=== PATIENT | female | born 1980 | race Two or more races ===

== ENCOUNTER 2017-01-15 05:06 | Day surgery (SDC) | payer OTHER ==
[2017-01-08 13:48] VITALS: BMI 26.5
--- NOTE | 2017-01-14 09:12 | HP ---
[facility] - Chief Complaint Chief Complaint: This patient has had irregular uterine bleeding for the past several months. History of Present Illness: This patient c/o having bleeding 4-5 times a month for several months. History Source: Patient Limitations to Obtaining History: No Limitations - Past Medical History Allergies/Adverse Reactions: Allergies Allergy/AdvReac Type Severity Reaction Status Date / Time No Known Allergies Allergy Verified 01/08/17 13:48 LETTERPRESS SETTER: No: Alzheimer's, CVA, Dementia, Migraine, Multiple Sclerosis, Peripheral Neuropathy, Parkinson's, Seizure, Syncope, TIA, Vertigo, Other Pulmonary: No: Asthma, Bronchitis, Cancer, COPD, O2 Dependent, Pneumonia, Previously Intubated, Pulmonary Embolus, Pulmonary Fibrosis, Sleep Apnea, Other Gastrointestinal: No: Ascites, Cancer, Constipation, Crohn's Disease, Diverticulitis, Diverticulosis, Esophageal Varices, Gastritis, GERD, GI Bleed, Hemorrhoids, Hiatal Hernia, Inflamatory Bowel Disease, Irritable Bowel Disease, Pancreatitis, Peptic Ulcer Disease, Ulcerative Colitis, Other Hepatobiliary: No: Cirrhosis, Cholelithiasis, Cholecystitis, Choledocholithiasis , Hepatitis A, Hepatitis B, Hepatitis C, Other Renal/: No: Renal Failure, Renal Inusuff, BPH, Cancer, Hematuria, Hemodialysis , Neurogenic Bladder, Renal Calculi, UTI, Other Reproductive: No: Ectopic , Endometriosis, Fibroids, PID, Polycystic Ovary Syndrome, Postmenopausal, Other ...LMP: 12/10/16 ...LMP Comment: HEAVY ...: No ...: 3 ...Para: 2 Heme/Onc: No: Anemia, B12 Deficiency, Bleeding Disorder, Cancer, Current Chemotherapy, Current Radiation Therapy, Hemochromatosis, Hypercoaguable State, Myeloproliferative Synd, Sickle Cell Disease, Sickle Cell Trait, Thrombocytopenia, Other Infectious Disease: No: AIDS, C-Diff, Herpes Zoster, HIV, MRSA, STD's, Tuberculosis, VREF, Other Musculoskeletal: No: Bursitis, Chronic low back pain, Hemiparesis, Hemiplegia, Osteoarthritis, Paraplegia, Other Rheumatology: No: Fibromyalgia, Gout, Lupus, Rheumatoid Arthritis, Sarcoidosis, Vasculitis, Other ENT: No: Allergic Rhinitis, Sinusitis, Other Endocrine: No: Ararat's Disease, Oxana's Disease, Diabetes Insipidus, Diabetes Mellitus, Hyperparathyroidism, Hyperthyroidism, Hypothyroidism, Osteopenia, SIADH, Other Dermatology: No: Basal Cell, Cellulitis, Eczema, Melanoma, Psoriasis, Squamous Cell, Other (This patient did have an endometrial ablation in 2014 for heavy uterine bleeding.The patient also has a fibroid uterus.) - Current Medications Current Medications: Home Medications Medication Instructions Recorded Acetaminophen [Tylenol] 650 mg PO PRN PRN 01/08/17 Ibuprofen 800 mg PO PRN PRN 01/08/17 Nadolol 20 mg PO DAILY 01/08/17 Rizatriptan Benzoate [Maxalt Bin Tripper Operator] 10 mg PO PRN PRN MDD 2 01/08/17 Satellite Physical Exam - Physical Examination General Appearance: Well Nourished, Well Developed, Alert & Oriented x3 ENT: Clear, No Discharge, No masses Lung: Clear to auscultation Heart: Regular rate & rhythm, Normal S1, Normal S2 Breasts: Soft, Non-Tender, No masses bilaterally Abdomen: Soft, No tenderness, No CVA Extremities: No edema, No tenderness/swelling Pelvic Exam: Within normal limits External Genitalia, Within normal limits Vagina, Within normal limits Cervix, Within normal limits 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
[2017-01-15] MEDS ORDERED: MIDAZOLAM HCL 2 MG/2 ML SINGLE DOSE VIAL ONE (07:33)
[2017-01-15] MEDS ORDERED: LIDOCAINE HCL/PF 2% SDV 5ML VIAL ONE (07:41)
[2017-01-15] MEDS ORDERED: PROPOFOL 20 ML ONE (07:41)
[2017-01-15] MEDS ORDERED: DEXAMETHASONE SOD PHOSPHATE 4 MG/1 ML VIAL ONE (07:55)
[2017-01-15] MEDS ORDERED: KETOROLAC TROMETHAMINE 30 MG/1 ML VIAL ONE (08:03)
--- NOTE | 2017-01-15 08:37 | OP ---
DATE OF OPERATION: 01/15/2017 SURGEON: Cody Corley MD DESCRIPTION OF PROCEDURE: The patient was brought to the operating room, placed in a supine position, given anesthesia by Dr. Pereira. The patient received a MAC type of anesthesia. The estimated blood loss was approximately 10 mL. So, the patient was brought to the operating room, placed in a supine position, placed in the lithotomy position, prepped and draped in the usual manner for hysteroscopy, dilatation and curettage. The patient was examined. The uterus was noted to be anteverted, and adnexa negative. The anterior lip of the cervix was grasped with a tenaculum, and the cervix was dilated with Boss dilators. A dark brownish blood came out of the cervix when it was opened using the dilator. There was some resistance to dilatation. This was followed by hysteroscopy, and the hysteroscope revealed adhesions. Further dilatation of the cervix provided the breaking up of the adhesions, and the uterus was sounded eventually to 8 cm. Examination of the endometrium revealed adhesions and scar tissue. A dilatation and curettage was carried out to remove the tissue, and an endocervical curettage was also carried out to remove more adhesions. The patient tolerated the procedure well. The estimated blood loss was approximately 10 mL. Hemostasis was good. Then after the speculum and the instruments were removed from the vagina, the patient was transferred to the recovery room in good condition with good vital signs. CODY CORLEY M.D. MANJEET/[id number]
[2017-01-15] MEDS ORDERED: ONDANSETRON 4 MG/2 ML VIAL IVPUSH PRN (09:25)
[2017-01-15] MEDS ORDERED: IBUPROFEN 800 MG/8 ML IJ IVPB PRN (09:25)
[2017-01-15] MEDS ORDERED: oxyCODONE HCL 5 MG TABLET PO PRN (09:25)
[2017-01-15] MEDS ORDERED: LACTATED RINGERS SOLUTION 1,000 ML IV SCH (09:30)
[2017-01-15 12:01] VITALS: TEMP 97.6
[2017-01-15 12:08] VITALS: BP 106/56; PULSE 68
--- NOTE | 2017-01-16 15:08 | PATH ---
Surgical Pathology Report Patient Name: ESSIE SLATER [facility]. Rec. #: [id number] /Age/Gender: 1980 (Age: 36) / F Account: [id number] Location: [facility] SURGICAL Taken: 01/15/2017 Received: 01/15/2017 Reported: 01/16/2017 Physicians: Saeid Corley M.D. Specimen(s) Received A: ENDOMETRIAL CURETTINGS B: ENDOCERVICAL CURETTINGS Clinical History Menorrhagia Final Diagnosis A. ENDOMETRIUM, CURETTAGE: POLYPOID FRAGMENTS OF PREDOMINANTLY INACTIVE ENDOMETRIUM WITH FOCAL AREAS SUGGESTIVE OF ENDOMETRIAL POLYP/ ADHESIONS. FRAGMENTS OF BENIGN SMOOTH MUSCLE. FRAGMENTS OF BENIGN ENDOCERVICAL TISSUE WITH SQUAMOUS METAPLASIA. FRAGMENTS OF BENIGN SQUAMOUS EPITHELIUM B. ENDOCERVIX, CURETTAGE: POLYPOID FRAGMENTS OF BENIGN CERVICAL TISSUE. Electronically Signed Matty Chacko M.D. Gross Description A. Received in formalin labeled "endometrial curettings" is a 1.4 x 1.2 x 0.3 cm aggregate of shi-pink soft tissue fragments. The formalin is filtered and the specimen is entirely submitted in one cassette. B. Received in formalin labeled "endocervical curettings" is a 1.2 x 0.8 x 0.3 cm aggregate of shi-pink, irregular to polypoid soft tissue fragments. The formalin is filtered and the specimen is entirely submitted in one cassette. 01/15/201701/15/2017
== END 2017-01-15 11:20 | disposition home or self-care (01) ==
LOC: JASU-SURG 05:06
PROVIDERS: ATTEND Obstetrics & Gynecology
PROC: 0UDB8ZX Extraction of Endometrium, Via Natural or Artificial Opening Endoscopic, Diagnostic (ICD-10-PCS; principal; 2017-01-15 07:30)
DX: N92.0 Excessive and frequent menstruation with regular cycle (principal)
CPT/HCPCS: 84703; 86850; 86900; 86901; 88305-TC; 94760

== ENCOUNTER 2017-07-23 23:44 | Emergency (ER) | payer OTHER ==
[2017-07-24 00:18] VITALS: BMI 25.3
[2017-07-24] MEDS ORDERED: SODIUM CHLORIDE 1,000 ML IV STA (03:01)
[2017-07-24] MEDS ORDERED: METOCLOPRAMIDE HCL INJECTION 10 MG/2 ML VIAL IVPUSH ONE (03:01)
[2017-07-24] MEDS ORDERED: ACETAMINOPHEN 1000 MG/100 ML VIAL (NON FORMULARY) IVPB ONE (03:02)
[2017-07-24] MEDS ORDERED: METOCLOPRAMIDE HCL INJECTION 10 MG/2 ML VIAL ONE (03:19)
[2017-07-24] MEDS ORDERED: ACETAMINOPHEN INJECTION 100 ML IVPB ONE (03:19)
--- NOTE | 2017-07-24 03:32 | PDOC ---
History of Present Illness - General Chief Complaint: Pain Stated Complaint: HEADACHE/VOMITING Time Seen by Provider: 07/24/17 02:56 - History of Present Illness Initial Comments: 07/24/17 04:51 The patient is a 37 year old female with a history of migraines who presents for evaluation of headache. The patient reports gradual onset of a throbbing headache 1 day ago with associated photophobia, nausea, and non-bloody, non- bilious vomiting. She reports that her symptoms were similar to her typical migraine headaches and she took her normal medication with minimal improvement in her symptoms prompting her presentation to the ED for evaluation. She also reports increase in urinary frequency and urgency as well. She otherwise denies fevers, chills, SOB, chest pain, abdominal pain, numbness, tingling, weakness, or changes with bowel movements. Past History - Past Medical History Allergies/Adverse Reactions: Allergies Allergy/AdvReac Type Severity Reaction Status Date / Time No Known Allergies Allergy Verified 07/24/17 00:15 Home Medications: Ambulatory Orders Nadolol 20 mg PO DAILY 01/08/17 Rizatriptan Benzoate [Maxalt Milk Tester] 10 mg PO PRN PRN MDD 2 01/08/17 levoFLOXacin [Levaquin -] 500 mg PO DAILY #7 tablet 07/24/17 Anemia: Yes (HX OF ANEMIA) Asthma: No Cancer: No Cardiac Disorders: No CVA: No COPD: No CHF: No Dementia: No Diabetes: No GI Disorders: No Disorders: No HTN: No Hypercholesterolemia: No Liver Disease: No Seizures: No Thyroid Disease: No Other medical history: Migraines - Surgical History Abdominal Surgery: No Appendectomy: No Cardiac Surgery: No Cholecystectomy: No Lung Surgery: No Neurologic Surgery: No Orthopedic Surgery: No - Suicide/Smoking/Psychosocial Hx Smoking History: Never smoked Have you smoked in the past 12 months: No Information on smoking cessation initiated: No Hx Alcohol Use: No Drug/Substance Use Hx: No Substance Use Type: None Hx Substance Use Treatment: No Review of Systems - Review of Systems Comments:: 07/24/17 04:54 Constitutional: No fevers, chills, fatigue, malaise HEENT: No Rhinorrhea, nasal congestion, visual changes Cardiovascular: No chest pain, syncope, palpitations, lightheadedness Respiratory: No Cough, SOB, Hemoptysis, Gastrointestinal: Nausea, vomiting. No Abdominal pain, Constipation, Diarrhea, Melena Genitourinary: No Dysuria, Frequency, Urgency, Hesitancy, Hematuria, Flank pain Musculoskeletal: No Myalgia, arthralgia Skin: No rashes, itching, bruising, pallor Neurologic: Headache, Photophobia. No Dizziness, Numbness, Weakness, or Tingling Psychiatric: No Hallucinations. No SI or HI *Physical Exam - Vital Signs Last Vital Signs Temp Pulse Resp BP Pulse Ox 97.5 F L 74 18 134/97 100 07/24/17 00:15 07/24/17 00:15 07/24/17 00:15 07/24/17 00:15 07/24/17 00:15 - Physical Exam Comments: 07/24/17 04:55 General Appearance: Nourished. No Apparent Distress HEENT: EOMI, KHARI. No Pharyngeal Erythema, Tonsillar Exudate, Tonsillar Erythema Neck: No Cervical Lymphadenopathy Respiratory/Chest: Lungs Clear, Normal Breath Sounds. No Crackles, Rales, Rhonchi, Wheezing Cardiovascular: Regular Rhythm, Regular Rate. No Murmur, Gallops, Rubs Gastrointestinal/Abdominal: Normal Bowel Sounds, Soft. No Guarding, Rebound, Tenderness Musculoskeletal: No CVA Tenderness Extremity: Normal Capillary Refill Integumentary: Normal Color, Dry, Warm Neurologic: automatic drilling machine operator II-XII NML intact, Fully Oriented, Alert, Normal Mood/Affect, Normal Response, Motor Strength 5/5. Normal Finger to Nose and Heel to [place] ED Treatment Course - LABORATORY CBC & Chemistry Diagram: 07/24/17 03:24 07/24/17 03:24 Medical Decision Making - Medical Decision Making 07/24/17 04:56 The patient is a 37 year old female with a history of migraines who presents for evaluation of headache. Given the patient's history and normal physical exam with symptoms similar to her prior migraines, it is likely her symptoms are due to a migraine headache. However, we will obtain a cbc, cmp, ua, urine preg to evaluate for other possible etiologies. We will treat with with benadryl, reglan, iv tylenol, iv fluids. We will continue to monitor and reassess. 07/24/17 05:00 CBC demonstrates a wbc elevation to 11.2. CMP is unremarkable. UA demonstrates positive leuk esterase with 400+wbc concerning for a UTI. The patient's symptoms are likely due to a combination of a UTI and migraine headache. The patient reports improvement in her headache after receiving medication. We will treat her with a dose of levaquin here in the ED. We are comfortable discharging the patient home at this time with primary care provider follow up with a course of levaquin. We discussed the results, plan, and return precautions with the patient who voiced understanding and is agreeable with the plan. *DC/Admit/Observation/Transfer Diagnosis at time of Disposition: Migraine Qualifiers: Migraine type: unspecified Status migrainosus presence: without status migrainosus Intractability: not intractable Qualified Code(s): G43.909 - Migraine, unspecified, not intractable, without status migrainosus UTI (urinary tract infection) Qualifiers: Urinary tract infection type: site unspecified Hematuria presence: with hematuria Qualified Code(s): N39.0 - Urinary tract infection, site not specified - Discharge Dispostion Disposition: HOME Condition at time of disposition: Good Admit: No - Prescriptions Prescriptions: levoFLOXacin [Levaquin -] 500 mg PO DAILY #7 tablet - Referrals - Patient Instructions Printed Discharge Instructions: DI for Migraine, DI for Urinary Tract Infection (UTI) Additional Instructions: Please return to the ER if you experience concerning or worsening symptoms including worsening headache, weakness in your extremities, vomiting, or difficulty breathing. Your lab results were mostly normal, however your urine showed that you have a urinary tract infection. We have sent a prescription to your pharmacy for Levaquin that you should take daily for the next 7 days. It is extremely important that you call to schedule a follow up appointment with your primary care provider within 2-3 days to discuss your ER visit and further management of your symptoms. - Post Discharge Activity
[2017-07-24 03:38] LABS: BASO % 1.3 % (0-2.0); EOS % 18.9 % (0-4.5); HEMATOCRIT 41.5 % (32.4-45.2); HEMOGLOBIN 13.9 GM/dL (10.7-15.3); LYMPH % 31.8 % (8-40); MCH 32.3 pg (25.7-33.7); MCHC 33.6 g/dl (32.0-36.0); MEAN CELL VOLUME 96.3 fl (80-96); MEAN PLT VOLUME 7.3 fl (7.5-11.1); MONO % 5.1 % (3.8-10.2); NEUT % 42.9 % (42.8-82.8); PLATELET COUNT 288 K/MM3 (134-434); RBC 4.31 M/mm3 (3.60-5.2); WHITE BLOOD COUNT 11.7 K/mm3 (4.0-10.0)
[2017-07-24 03:50] LABS: URINE APPEARANCE CLOUDY; URINE BILIRUBIN NEGATIVE (NEGATIVE); URINE BLOOD 3+ (NEGATIVE); URINE COLOR YELLOW; URINE GLUCOSE (UA) NEGATIVE (NEGATIVE); URINE KETONE TRACE (NEGATIVE); URINE NITRITE NEGATIVE (NEGATIVE); URINE UROBILINOGEN NEGATIVE mg/dL (0.2-1.0)
[2017-07-24 03:51] LABS: HCG,QUALITATIVE URINE NEGATIVE
[2017-07-24 04:01] LABS: URINE LEUK ESTERASE 3+ (NEGATIVE); URINE PROTEIN 2+ (NEGATIVE)
[2017-07-24 04:03] LABS: CALCIUM OXALATE CRYSTALS FEW /hpf (NONE SEEN); EPI CELLS MODERATE /HPF (FEW); URINE MUCUS MANY
[2017-07-24 04:13] LABS: ALBUMIN 3.9 g/dl (3.4-5.0); ALK PHOS 48 U/L (45-117); ANION GAP 7 (8-16); BILIRUBIN,TOTAL 0.8 mg/dL (0.2-1.0); BLOOD UREA NITROGEN 11 mg/dL (7-18); CALCIUM 8.7 mg/dL (8.5-10.1); CHLORIDE 106 mmol/L (98-107); CO2 26 mmol/L (21-32); CREATININE 0.8 mg/dL (0.55-1.02); GLUCOSE,RANDOM 95 mg/dL (74-106); SGOT/AST 19 U/L (15-37); SGPT/ALT 27 U/L (12-78); SODIUM 139 mmol/L (136-145); TOT PROT 7.9 g/dl (6.4-8.2)
--- NOTE | 2017-07-24 04:42 | PDOC ---
Attending Attestation - Resident Resident Name: Joe Gutierrez - ED Attending Attestation I have performed the following: I have examined & evaluated the patient, The case was reviewed & discussed with the resident, I agree w/resident's findings & plan, Exceptions are as noted - Physicial Exam PE: 07/24/17 04:43 *Physical Exam General Appearance: Yes: Appropriately Dressed. No: Apparent Distress, Intoxicated HEENT: positive: EOMI, KHARI, Normal ENT Inspection, Normal Voice, TMs Normal, Pharynx Normal. negative: Pale Conjunctivae, Photophobia, Scleral Icterus (R), Scleral Icterus (L) Neck: positive: Trachea midline, Normal Thyroid, Supple. negative: Tender, Rigid, Carotid bruit, Stridor, Lymphadenopathy (R), Lymphadenopathy (L), Thyromegaly Respiratory/Chest: positive: Lungs Clear, Normal Breath Sounds. negative: Chest Tender, Respiratory Distress, Accessory Muscle Use, Labored Respiration, RES, Crackles, Rales, Rhonchi, Stridor, Wheezing, Dullness Cardiovascular: positive: Regular Rhythm, Regular Rate, S1, S2. negative: Edema , JVD, Murmur, Bradycardia, Tachycardia Vascular Pulses: Dorsalis-Pedis (R): 2+, Doralis-Pedis (L): 2+ Gastrointestinal/Abdominal: positive: Normal Bowel Sounds, Flat, Soft. negative : Tender, Organomegaly, Pulsatile Mass, Increased Bowel Sounds, Decreased BS, Distended, Guarding, Rebound, Hernia, Hepatomegaly, Spleenomegaly Lymphatic: negative: Adenopathy, Tenderness Musculoskeletal: positive: Normal Inspection. negative: CVA Tenderness, Decreased Range of Motion Extremity: positive: Normal Capillary Refill, Normal Inspection, Normal Range of Motion, Pelvis Stable. negative: Tender, Pedal Edema, Swelling, Erythema Integumentary: positive: Normal Color, Dry, Warm. negative: Cyanotic, Erythema , Jaundice, Rash Neurologic: positive: regional vice president life sales II-XII NML intact, Fully Oriented, Alert, Normal Mood/ Affect, Motor Strength 5/5. negative: EOM Palsy, Facial Droop, Sensory Deficit <Nikunj Carrillo - Last Filed: 07/24/17 04:43> - HPI HPI: 07/24/17 05:04 Patient is a 37 year old female with a significant past medical history of Migraines who presents to the ED with complaints of headache that began earlier today at noon. Patient reports experiencing gradual onset of intense head pain that began earlier today that she states is a throbbing pain. She reports head pain is similar to her past episodes of migraines but states she took her migraine medication with slight relief. Patient reports experiencing associated symptoms of 3 episodes of vomiting since noon, as well as nausea and photophobia , prompting her to come into the ED for further evaluation. She reports experiencing slight urinary hesitancy and frequent urination. Denies chest pain, Sob. Denies trauma to affected area. Denies contact with sick individuals, out of state travelling. Denies any other symptoms. Allergies: None Social history: No smoking. No alcohol. No illicit drugs. Surgical history: None PMD: None - Medical Decision Making 07/24/17 05:04 Documentation prepared by Jose Isabel, acting as medical sociologist for Nikunj Carrillo MD/DO. <Jose Isabel - Last Filed: 07/24/17 05:04>
[2017-07-24 05:15] VITALS: BP 117/81; PULSE 69; TEMP 97.6
== END 2017-07-24 05:16 | disposition home or self-care (01) ==
LOC: JER 23:44
PROC: 3E033NZ Introduction of Analgesics, Hypnotics, Sedatives into Peripheral Vein, Percutaneous Approach (ICD-10-PCS; principal; 2017-07-23)
PROC: 3E033GC Introduction of Other Therapeutic Substance into Peripheral Vein, Percutaneous Approach (ICD-10-PCS; 2017-07-23)
PROC: 3E033GC Introduction of Other Therapeutic Substance into Peripheral Vein, Percutaneous Approach (ICD-10-PCS; 2017-07-23)
DX: G43.909 Migraine, unspecified, not intractable, without status migrainosus (principal); N39.0 Urinary tract infection, site not specified
CPT/HCPCS: 36415; 80053; 81003; 81015; 84703; 85025; 87086; 99282-25; J0131; J7030

== ENCOUNTER 2018-03-04 05:14 | Day surgery (SDC) | payer OTHER ==
[2018-03-03 11:47] VITALS: BMI 23.5
--- NOTE | 2018-03-04 15:21 | HP ---
History & Physical Update - Physical Physical: No Change - Assessment Assessment: No Change
[2018-03-04] MEDS ORDERED: PROPOFOL 20 ML ONE ×2 (16:27)
[2018-03-04] MEDS ORDERED: DEXAMETHASONE SOD PHOSPHATE 4 MG/1 ML VIAL ONE (16:28)
[2018-03-04] MEDS ORDERED: KETOROLAC TROMETHAMINE 30 MG/1 ML VIAL ONE (16:28)
[2018-03-04] MEDS ORDERED: LIDOCAINE HCL/PF 2% SDV 5ML VIAL ONE (16:28)
[2018-03-04] MEDS ORDERED: LIDOCAINE HCL 2% JELLY (5 ML/TUBE) ONE (16:29)
[2018-03-04] MEDS ORDERED: IBUPROFEN 600 MG TABLET (FP) PO PRN (16:36)
[2018-03-04] MEDS ORDERED: oxyCODONE HCL 5 MG TABLET PO PRN ×3 (16:36→17:10)
[2018-03-04] MEDS ORDERED: ONDANSETRON 4 MG/2 ML VIAL IVPUSH PRN ×2 (16:36→17:10)
[2018-03-04] MEDS ORDERED: IBUPROFEN 800 MG/8 ML IJ IVPB PRN (16:36)
[2018-03-04] MEDS ORDERED: ELECTROLYTE-148 SOLN 1,000 ML IV SCH (16:45)
[2018-03-04] MEDS ORDERED: PROMETHAZINE HCL 25 MG/1 ML VIAL IVPUSH PRN (17:10)
[2018-03-04 18:16] VITALS: TEMP 97.4
[2018-03-04 19:00] VITALS: BP 118/77; PULSE 79
--- NOTE | 2018-03-04 20:33 | OP ---
DATE OF OPERATION: 03/04/2018 PREOPERATIVE DIAGNOSES: Submucous myoma, possible endometrial polyp. POSTOPERATIVE DIAGNOSES: Submucous myoma, possible endometrial polyp, uterine adhesions, hematometra, and endometrial submucous fibroids. DESCRIPTION OF OPERATION: Patient was taken to the operating room. Under adequate general anesthesia in dorsal lithotomy position, examination under anesthesia revealed the external genitalia to be normal. Vagina was normal. Cervix was clean, no gross lesion. Uterus was anteverted, slightly prominent. No masses were felt. Adnexa: No masses palpable. Then, with the weighted speculum in the vagina, anterior lip of the cervix was grasped with single-tooth tenaculum. Uterine cavity was sounded to 7 cm. Then, cervix slightly dilated. Hysteroscope was introduced. Endocervical canal appeared to be normal. Uterine cavity had adhesions of the anterior and posterior wall from the previous endometrial ablation. There were 2 uterine masses seen in the lower uterine area. First, the cornual region was then visualized. Because of the adhesions, at this time the adhesions were lysed, and then, the cornual region was identified. No endometrium appeared to be irregular. There was some dark blood in between the adhesions which they were released and coming through the cervix after the lysis of the uterine adhesions. Then, the 2 uterine masses were each about 1-2 cm. These masses were resected. Then, no active bleeding was seen. Then, hysteroscope was introduced, and the endometrium appeared to be cleared. Patient tolerated the procedure well, left the OR in good condition. Claudia [id number]
--- NOTE | 2018-03-08 16:42 | PATH ---
Surgical Pathology Report Patient Name: ESSIE SLATER [facility]. Rec. #: [id number] /Age/Gender: 1980 (Age: 37) / F Account: [id number] Location: [facility] SURGICAL Taken: 03/04/2018 Received: 03/05/2018 Reported: 03/08/2018 Physicians: Christian Nolan M.D. Specimen(s) Received A: UTERINE MASS B: ENDOMETRIAL CURETTINGS Clinical History Excessive and frequent menstruation with irregular Final Diagnosis A. UTERINE MASS, REMOVAL: FRAGMENTS OF ENDOCERVICAL POLYP. B. ENDOMETRIAL CURETTINGS, DILATION AND CURETTAGE: FRAGMENTS OF ENDOCERVICAL POLYP, LOWER UTERINE SEGMENT AND BENIGN ECTOCERVICAL SQUAMOUS MUCOSA WITH FOCAL ACUTE MILD INFLAMMATION. Electronically Signed Paulina Parra M.D. Gross Description A. Received in formalin labeled "uterine mass," is a 1.5 x 1.5 x 0.3 cm aggregate of shi-brown soft tissue fragments. The formalin is filtered and the specimen is entirely submitted in one cassette. B. Received in formalin labeled "endometrial curettings," is a 1.3 x 1.3 x 0.2 cm aggregate of shi brown soft tissue fragments admixed with mucus. The formalin is filtered and the specimen is entirely submitted in one cassette. /03/05/2018 saudi03/05/2018
== END 2018-03-04 19:15 | disposition home or self-care (01) ==
LOC: JASU-SURG 05:14
PROVIDERS: ATTEND Obstetrics & Gynecology
PROC: 0UN98ZZ Release Uterus, Via Natural or Artificial Opening Endoscopic (ICD-10-PCS; principal; 2018-03-04 15:30)
PROC: 0UB98ZZ Excision of Uterus, Via Natural or Artificial Opening Endoscopic (ICD-10-PCS; 2018-03-04 15:30)
DX: D25.0 Submucous leiomyoma of uterus (principal); N85.6 Intrauterine synechiae; N85.7 Hematometra
CPT/HCPCS: 84703; 88305-TC; 94760

== ENCOUNTER 2021-05-22 20:14 | Emergency (ER) | payer OTHER ==
[2021-05-22 20:23] VITALS: BP 147/83; PULSE 88; TEMP 98.3; BMI 24.4
[2021-05-22] MEDS ORDERED: KETOROLAC TROMETHAMINE 30 MG/1 ML VIAL IVPUSH ONE (21:53)
[2021-05-22] MEDS ORDERED: SODIUM CHLORIDE 0.9% 500 ML INFUS.BAG IV ONE (21:53)
[2021-05-22] MEDS ORDERED: KETOROLAC TROMETHAMINE 30 MG/1 ML VIAL ONE (22:06)
[2021-05-22 22:11] LABS: EPI CELLS 9 /uL (0-25.1); HYALINE CASTS 0 /uL (0-3.1); URINE APPEARANCE CLEAR; URINE BACTERIA 98 /uL (0-1359); URINE BILIRUBIN NEGATIVE (NEGATIVE); URINE COLOR YELLOW; URINE GLUCOSE (UA) NEGATIVE (NEGATIVE); URINE KETONE NEGATIVE (NEGATIVE); URINE LEUK ESTERASE NEGATIVE (NEGATIVE); URINE NITRITE NEGATIVE (NEGATIVE); URINE PROTEIN NEGATIVE (NEGATIVE); URINE RBC 151 /uL (0-23.9); URINE UROBILINOGEN 0.2 mg/dL (0.2-1.0); URINE WBC 5 /uL (0-25.8)
[2021-05-22 22:17] LABS: BASO % 0.8 % (0-2.0); HEMATOCRIT 40.3 % (32.4-45.2); HEMOGLOBIN 13.5 GM/dL (10.7-15.3); LYMPH % 40.3 % (8-40); MCH 31.8 pg (25.7-33.7); MCHC 33.5 g/dl (32.0-36.0); MEAN PLT VOLUME 6.8 fl (7.5-11.1); MONO % 5.1 % (3.8-10.2); NEUT % 43.8 % (42.8-82.8); PLATELET COUNT 239 10^3/uL (134-434); RBC 4.24 M/mm3 (3.60-5.2); WHITE BLOOD COUNT 9.9 K/mm3 (4.0-10.0)
[2021-05-22 22:31] LABS: HCG,QUALITATIVE URINE Negative
[2021-05-22 22:37] LABS: ALBUMIN 4.1 g/dl (3.4-5.0); CALCIUM 9.2 mg/dL (8.5-10.1)
[2021-05-22 22:41] LABS: CREATININE 0.7 mg/dL (0.55-1.3)
[2021-05-22 22:42] LABS: BILIRUBIN,TOTAL 0.3 mg/dL (0.2-1); TOT PROT 7.8 g/dl (6.4-8.2)
== END 2021-05-23 00:35 | disposition home or self-care (01) ==
LOC: JERFT 20:14
PROC: 3E0333Z Introduction of Anti-inflammatory into Peripheral Vein, Percutaneous Approach (ICD-10-PCS; principal; 2021-05-22)
DX: N83.292 Other ovarian cyst, left side (principal)
CPT/HCPCS: 36415; 74177-TC; 76830-TC; 80053; 81003; 83690; 84703; 85025; 87086; 99285-25; Q9967

== ENCOUNTER 2022-02-24 13:20 | Emergency (ER) | payer OTHER ==
[2022-02-24 14:16] VITALS: TEMP 98.6; BMI 24.7
[2022-02-24 17:55] LABS: BASO % 0.6 % (0-2.0); EOS % 12.4 % (0-4.5); HEMATOCRIT 41.8 % (32.4-45.2); LYMPH % 24.4 % (8-40); MCH 32.2 pg (25.7-33.7); MCHC 33.4 g/dl (32.0-36.0); MEAN CELL VOLUME 96.3 fl (80-96); MEAN PLT VOLUME 6.7 fl (7.5-11.1); MONO % 7.2 % (3.8-10.2); NEUT % 55.4 % (42.8-82.8); PLATELET COUNT 235 10^3/uL (134-434); RBC 4.34 M/mm3 (3.60-5.2); RDW 12.7 % (11.6-15.6); WHITE BLOOD COUNT 12.9 K/mm3 (4.0-10.0)
[2022-02-24 18:06] LABS: EPI CELLS 4 /uL (0-25.1); HCG,QUALITATIVE URINE Negative; HYALINE CASTS 0 /uL (0-3.1); PH,URINE 7.5 (5.0-8.0); URINE APPEARANCE CLEAR; URINE BACTERIA 75 /uL (0-1359); URINE BILIRUBIN NEGATIVE (NEGATIVE); URINE COLOR YELLOW; URINE GLUCOSE (UA) NEGATIVE (NEGATIVE); URINE KETONE NEGATIVE (NEGATIVE); URINE LEUK ESTERASE NEGATIVE (NEGATIVE); URINE NITRITE NEGATIVE (NEGATIVE); URINE PROTEIN NEGATIVE (NEGATIVE); URINE RBC 92 /uL (0-23.9); URINE UROBILINOGEN 0.2 mg/dL (0.2-1.0); URINE WBC 2 /uL (0-25.8)
[2022-02-24 18:19] LABS: CALCIUM 8.9 mg/dL (8.5-10.1)
[2022-02-24 18:20] LABS: ALBUMIN 3.7 g/dl (3.4-5.0); BLOOD UREA NITROGEN 10.5 mg/dL (7-18)
[2022-02-24 18:23] LABS: CREATININE 0.7 mg/dL (0.55-1.3)
[2022-02-24 18:25] LABS: BILIRUBIN,TOTAL 0.4 mg/dL (0.2-1); TOT PROT 7.7 g/dl (6.4-8.2)
[2022-02-24] MEDS ORDERED: SODIUM CHLORIDE 1,000 ML IV ONE (18:35)
[2022-02-24] MEDS ORDERED: morphine CARPU-JECT 4 MG/1 ML DISP.SYRIN IVPUSH ONE (18:35)
[2022-02-24] MEDS ORDERED: morphine SULFATE 4 MG/ML VIAL ONE (18:43)
[2022-02-24] MEDS ORDERED: KETOROLAC TROMETHAMINE 15 MG/ML VIAL ONE (21:44)
[2022-02-24] MEDS ORDERED: KETOROLAC TROMETHAMINE 15 MG/ML VIAL IVPUSH ONE (21:44)
[2022-02-24 21:48] VITALS: BP 132/96; PULSE 90; RESP 16
[2022-02-25] MEDS ORDERED: KETOROLAC TROMETHAMINE 15 MG/ML VIAL ONE (00:30)
[2022-02-25] MEDS ORDERED: KETOROLAC TROMETHAMINE 15 MG/ML VIAL IVPUSH ONE (00:30)
== END 2022-02-25 00:59 | disposition home or self-care (01) ==
LOC: JER 13:20
PROC: 3E0333Z Introduction of Anti-inflammatory into Peripheral Vein, Percutaneous Approach (ICD-10-PCS; principal; 2022-02-24)
PROC: 3E0333Z Introduction of Anti-inflammatory into Peripheral Vein, Percutaneous Approach (ICD-10-PCS; 2022-02-24)
PROC: 3E033NZ Introduction of Analgesics, Hypnotics, Sedatives into Peripheral Vein, Percutaneous Approach (ICD-10-PCS; 2022-02-24)
PROC: 3E0337Z Introduction of Electrolytic and Water Balance Substance into Peripheral Vein, Percutaneous Approach (ICD-10-PCS; 2022-02-24)
DX: R10.32 Left lower quadrant pain (principal)
CPT/HCPCS: 36415; 74176-TC; 76830-TC; 80053; 81003; 84703; 85025; 87086; 99285-25

== ENCOUNTER 2022-03-06 13:45 | Emergency (ER) | payer OTHER ==
[2022-03-06 13:58] VITALS: BP 135/92; PULSE 82; RESP 18; TEMP 98.3; BMI 20.8
[2022-03-06] MEDS ORDERED: ONDANSETRON 4 MG/2 ML VIAL IVPUSH ONE (16:00)
[2022-03-06] MEDS ORDERED: morphine CARPU-JECT 4 MG/1 ML DISP.SYRIN IVPUSH ONE (16:00)
[2022-03-06] MEDS ORDERED: SODIUM CHLORIDE 0.9% 500 ML INFUS.BAG IV ONE (16:00)
[2022-03-06] MEDS ORDERED: ONDANSETRON 4 MG/2 ML VIAL ONE (16:19)
[2022-03-06] MEDS ORDERED: morphine SULFATE 4 MG/ML VIAL ONE (16:19)
[2022-03-06 17:24] LABS: HCG,QUALITATIVE URINE Negative
[2022-03-06 17:25] LABS: BASO % 1.2 % (0-2.0); EOS % 19.4 % (0-4.5); EPI CELLS 7 /uL (0-25.1); HEMATOCRIT 41.1 % (32.4-45.2); HEMOGLOBIN 13.4 GM/dL (10.7-15.3); HYALINE CASTS 0 /uL (0-3.1); LYMPH % 41.6 % (8-40); MCH 31.2 pg (25.7-33.7); MCHC 32.5 g/dl (32.0-36.0); MEAN CELL VOLUME 96.1 fl (80-96); MEAN PLT VOLUME 7.3 fl (7.5-11.1); MONO % 4.3 % (3.8-10.2); NEUT % 33.5 % (42.8-82.8); PH,URINE 6.5 (5.0-8.0); PLATELET COUNT 395 10^3/uL (134-434); RBC 4.28 M/mm3 (3.60-5.2); RDW 12.6 % (11.6-15.6); URINE APPEARANCE CLEAR; URINE BACTERIA 2 /uL (0-1359); URINE BILIRUBIN NEGATIVE (NEGATIVE); URINE COLOR YELLOW; URINE GLUCOSE (UA) NEGATIVE (NEGATIVE); URINE KETONE NEGATIVE (NEGATIVE); URINE LEUK ESTERASE TRACE (NEGATIVE); URINE NITRITE NEGATIVE (NEGATIVE); URINE PROTEIN NEGATIVE (NEGATIVE); URINE RBC 121 /uL (0-23.9); URINE UROBILINOGEN 0.2 mg/dL (0.2-1.0); URINE WBC 4 /uL (0-25.8); WHITE BLOOD COUNT 10.2 K/mm3 (4.0-10.0)
[2022-03-06 17:43] LABS: CALCIUM 9.5 mg/dL (8.5-10.1)
[2022-03-06 17:44] LABS: ALBUMIN 3.9 g/dl (3.4-5.0)
[2022-03-06 17:46] LABS: CREATININE 0.8 mg/dL (0.55-1.3)
[2022-03-06 17:48] LABS: BILIRUBIN,TOTAL 0.4 mg/dL (0.2-1); TOT PROT 7.9 g/dl (6.4-8.2)
[2022-03-06] MEDS ORDERED: ONDANSETRON 4 MG TABLET PO ONE (19:25)
[2022-03-06] MEDS ORDERED: IBUPROFEN 600 MG TABLET (FP) PO ONE ×2 (19:25→20:44)
[2022-03-06] MEDS ORDERED: ONDANSETRON *ODT* 4 MG TABLET ONE (20:44)
== END 2022-03-06 20:52 | disposition home or self-care (01) ==
LOC: JER 13:45
PROC: 3E033GC Introduction of Other Therapeutic Substance into Peripheral Vein, Percutaneous Approach (ICD-10-PCS; principal; 2022-03-06)
DX: R10.32 Left lower quadrant pain (principal)
CPT/HCPCS: 36415; 74177-TC; 80053; 81003; 83690; 84703; 85025; 87086; 99285-25; Q9967

== ENCOUNTER 2023-09-18 13:51 | Emergency (ER) | payer OTHER ==
[2023-09-18 14:00] VITALS: BP 156/91; PULSE 84; RESP 18; TEMP 98; BMI 28.0
== END 2023-09-18 14:51 | disposition home or self-care (01) ==
LOC: JERFT 13:51
DX: M54.9 Dorsalgia, unspecified (principal); V49.40XA Driver injured in collision with unspecified motor vehicles in traffic accident, initial encounter; Y92.410 Unspecified street and highway as the place of occurrence of the external cause
CPT/HCPCS: 99281-25

== ENCOUNTER 2023-10-07 17:06 | Emergency (ER) | payer OTHER ==
[2023-10-07 17:20] VITALS: BP 122/95; PULSE 84; RESP 18; TEMP 98; BMI 28.0
[2023-10-07] MEDS ORDERED: ACETAMINOPHEN INJECTION 100 ML IVPB ONE (19:46)
[2023-10-07] MEDS ORDERED: METOCLOPRAMIDE HCL INJECTION 10 MG/2 ML VIAL ONE (19:47)
[2023-10-07] MEDS: SODIUM CHLORIDE 0.9% 500 ML INFUS.BAG IV ONE (20:05)
[2023-10-07] MEDS: ACETAMINOPHEN 1000 MG/100 ML BAG IVPB ONE (20:05)
[2023-10-07] MEDS: METOCLOPRAMIDE HCL INJECTION 10 MG/2 ML VIAL IVPB ONE (20:05)
[2023-10-07] MEDS ORDERED: KETOROLAC TROMETHAMINE 15 MG/ML VIAL ONE (21:40)
[2023-10-07] MEDS: KETOROLAC TROMETHAMINE 15 MG/ML VIAL IM ONE (22:01)
== END 2023-10-07 22:01 | disposition home or self-care (01) ==
LOC: JER 17:06
PROC: 3E033NZ Introduction of Analgesics, Hypnotics, Sedatives into Peripheral Vein, Percutaneous Approach (ICD-10-PCS; principal; 2023-10-07)
PROC: 3E033GC Introduction of Other Therapeutic Substance into Peripheral Vein, Percutaneous Approach (ICD-10-PCS; 2023-10-07)
PROC: 3E0133Z Introduction of Anti-inflammatory into Subcutaneous Tissue, Percutaneous Approach (ICD-10-PCS; 2023-10-07)
DX: G43.909 Migraine, unspecified, not intractable, without status migrainosus (principal)
CPT/HCPCS: 70450-TC; 84703; 99284-25; J0131